=== PATIENT | female | born 1995 | race Caucasian/White ===

== ENCOUNTER 2020-08-11 20:11 | Emergency (ER) | payer BC ==
[2020-08-11] MEDS ORDERED: SODIUM CHLORIDE 0.9% (FLUSH) 10 ML SYG IV PRN (20:17)
--- NOTE | 2020-08-11 20:39 | RAD ---
EXAM: Chest,1 View CLINICAL INDICATION: Chest pounding COMPARISON: There is no previous study for comparison. FINDINGS: A single view of the chest was obtained. The heart size is normal. The pulmonary vascularity is unremarkable. The lungs are clear. There is no consolidation, infiltrate, pleural effusion, or pneumothorax. IMPRESSION: No evidence of active pulmonary disease. Electronically signed by: Froylan Blum MD 08/11/2020 8:38 PM [facility]
--- NOTE | 2020-08-11 21:49 | ED.PDOC ---
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 Patient's coworker noted her heart rate to be over 200 when she took her vital signs and was unable to get a good blood pressure. Patient was brought to the ED for further evaluation and treatment. Patient states she has never had symptoms like this in the past. Patient has intermittent headaches for which she takes Tylenol Motrin as needed. Palpitations were constant once they started. Patient denied any chest pain but she did has some generalized malaise and fatigue with near syncope and some mild shortness of breath. The symptoms were severe the improved shortly after arrival in the emergency department. Nothing seemed to make them better or worse. Timing/Duration: 1/2 hour Severity: severe Improving Factors: nothing Worsening Factors: nothing Associated Symptoms: malaise, shortness of breath, weakness Allergies/Adverse Reactions: Allergies NO KNOWN ALLERGY Allergy (Verified 08/11/20 20:17) Home Medications: Ambulatory Orders Propranolol HCl [Propranolol Hydrochloride] 5 mg PO BID #10 tab 08/11/20 Review of Systems - Review of Systems Constitutional: States: see HPI, malaise, weakness. Denies: chills, fever EENTM: States: no symptoms reported. Denies: eye pain, blurred vision, double vision Respiratory: States: see HPI, short of breath. Denies: cough, stridor, wheezing Cardiology: States: see HPI, palpitations, syncope - Near syncope. Denies: chest pain Gastrointestinal/Abdominal: States: no symptoms reported. Denies: abdominal pain, diarrhea, nausea, vomiting Genitourinary: States: no symptoms reported. Denies: dysuria, frequency Musculoskeletal: States: no symptoms reported. Denies: back pain, joint pain, neck pain Skin: States: no symptoms reported. Denies: change in color, rash Neurological: States: see HPI, weakness. Denies: tingling, tremors Endocrine: States: no symptoms reported. Denies: increased hunger, increased thirst, increased urine Hematologic/Lymphatic: States: no symptoms reported. Denies: blood clots, easy bleeding All other Systems: Reviewed and Negative Family Medical History - Family History Mother Family History: Unknown Physical Exam - Physical Exam General Appearance: Alert, Anxious, Obvious distress, Well Developed, Well Groomed, Well Hydrated, Well Nourished Eye Exam: bilateral normal Ears, Nose, Throat: hearing grossly normal, normal ENT inspection, normal pharynx Neck: non-tender, full range of motion, supple Respiratory: chest non-tender, lungs clear, normal breath sounds, no respiratory distress, no accessory muscle use Cardiovascular/Chest: normal peripheral pulses, no edema, no gallop, no JVD, no murmur, tachycardia Peripheral Pulses: radial,right: 2+, radial,left: 2+ Gastrointestinal/Abdominal: normal bowel sounds, non tender, soft Back Exam: normal inspection, no CVA tenderness, no vertebral tenderness, other - Patient with tattoo on her right shoulder Extremity: normal range of motion, non-tender, normal inspection Neurologic: button sewer II-XII nml as tested, no motor/sensory deficits, alert, normal mood/affect, oriented x 3 Skin Exam: normal color, warm/dry, other - Tattoo on right shoulder Lymphatic: no adenopathy Progress - Progress Progress: Differential diagnosis: Anxiety, PE, panic attack, medication reaction among others. 08/11/20 22:35 Patient symptoms have resolved. CT of the chest does not show PE. We will plan on discharge home with low-dose propranolol. Patient to follow-up with PCP in the next day or 2 for her palpitations, headaches and tachycardia. Patient knows that she will need a referral from her PCP for cardiology. I discussed the plan of care with the patient and she voices understanding and agreement. Perry Blanca M.D. #[id number] - Results/Orders Results/Orders: EKG performed on 11 August 2020 at 2014 hrs.: Sinus tachycardia at 112 bpm, normal axis deviation, no ST or T wave changes concerning for ischemia, otherwise normal EKG. No comparison EKG available at this time. EXAM: Chest,1 View CLINICAL INDICATION: Chest pounding COMPARISON: There is no previous study for comparison. FINDINGS: A single view of the chest was obtained. The heart size is normal. The pulmonary vascularity is unremarkable. The lungs are clear. There is no consolidation, infiltrate, pleural effusion, or pneumothorax. IMPRESSION: No evidence of active pulmonary disease. Electronically signed by: Se Blum MD 08/11/2020 8:38 PM 08/11/20 20:17 IV Care:Saline Lock per Protoc QSHIFT Telemetry .ONCE Sodium Chloride 0.9% (Flush) [Saline Flush Syringe] 10 ml IV PRN PRN EKG Assessment ONCE EKG Stat Pulse Ox Stat Pulse Oximetry Assessment DAILY 08/11/20 20:45 RESPIRATORY PANEL 2 Stat Laboratory Results - last 24 hr 08/11/20 08/11/20 20:30 20:30 WBC 11.3 H RBC 4.84 Hgb 14.1 Hct 41.7 MCV 86.1 MCH 29.1 MCHC 33.8 RDW 13.7 Plt Count 331 MPV 9.3 Absolute Neuts (auto) 5.90 Absolute Lymphs (auto) 4.30 H Absolute Monos (auto) 0.80 Absolute Eos (auto) 0.20 Absolute Basos (auto) 0.10 Neutrophils % 52.7 Lymphocytes % 38.1 Monocytes % 6.9 Eosinophils % 1.4 Basophils % 0.9 PT 10.5 INR 1.06 PTT (SP) 26.2 D-Dimer, Quantitative < 100.0 L Sodium 138 Potassium 3.3 L Chloride 106 Carbon Dioxide 23 Anion Gap 12.3 BUN 18 Creatinine 0.87 BUN/Creatinine Ratio 20.7 H Random Glucose 106 H Serum Osmolality 278.0 Calcium 9.5 Magnesium 2.2 Creatine Kinase 82 CK-MB (CK-2) 0.4 CK-MB (CK-2) % Not Reportable Troponin I < 0.02 B-Natriuretic Peptide < 15.0 EXAM DESCRIPTION: CTA Chest CLINICAL HISTORY: 24 years Female tachycardia and sob with associated chest pain COMPARISON: None TECHNIQUE: Images were obtained in axial, sagittal, and coronal planes. Intravenous contrast was administered. This exam was performed according to our departmental dose- optimization program which includes use of Automated Exposure Control, adjustment of the mA and/or kV according to patient size and/or use of iterative reconstruction technique. FINDINGS: No filling defects pulmonary arteries bilaterally. No aortic dissection or dilatation. No pericardial or pleural effusions bilaterally. No adenopathy. No pneumothorax. No lung parenchymal infiltrates or nodules seen. Flow artifact involving the spleen. No abnormality of the abdomen. No acute osseous abnormality. IMPRESSION: No evidence for pulmonary embolus. No aortic dissection or dilatation. No infiltrate seen. Electronically signed by: Samreen Ramirez MD 08/11/2020 9:50 PM [employer]END[employer] Vital Signs 08/11/20 08/11/20 20:17 21:12 Temperature 98.1 F Pulse Rate 126 H Pulse Rate [ 128 H 110 H left] Respiratory 18 14 Rate Blood Pressure 169/127 146/98 [Left Arm] O2 Sat by Pulse 100 98 Oximetry Departure - Departure Clinical Impression: Paroxysmal atrial tachycardia, Palpitations Headache Qualifiers: Headache type: unspecified Headache chronicity pattern: episodic headache Intractability: not intractable Qualified Code(s): R51.9 - Headache, unspecified Time of Disposition: 22:41 Disposition: Discharge to Home or Self Care Condition: Good Departure Forms: ED Discharge - Pt. Copy, Patient Portal Self Enrollment Instructions: DI for Chest Pain, Sinus Tachycardia (DC), Headache, Adult (DC), Palpitations (DC) Diet: resume usual diet Activity: increase activity as tolerated Referrals: [facility] [employer] [Active Staff] - 1-2 Weeks Prescriptions: Propranolol HCl [Propranolol Hydrochloride] 5 mg PO BID #10 tab Home Medications: Ambulatory Orders Propranolol HCl [Propranolol Hydrochloride] 5 mg PO BID #10 tab 08/11/20
--- NOTE | 2020-08-11 21:52 | CT ---
EXAM DESCRIPTION: CTA Chest CLINICAL HISTORY: 24 years Female tachycardia and sob with associated chest pain COMPARISON: None TECHNIQUE: Images were obtained in axial, sagittal, and coronal planes. Intravenous contrast was administered. This exam was performed according to our departmental dose-optimization program which includes use of Automated Exposure Control, adjustment of the mA and/or kV according to patient size and/or use of iterative reconstruction technique. FINDINGS: No filling defects pulmonary arteries bilaterally. No aortic dissection or dilatation. No pericardial or pleural effusions bilaterally. No adenopathy. No pneumothorax. No lung parenchymal infiltrates or nodules seen. Flow artifact involving the spleen. No abnormality of the abdomen. No acute osseous abnormality. IMPRESSION: No evidence for pulmonary embolus. No aortic dissection or dilatation. No infiltrate seen. Electronically signed by: Samreen Ramirez MD 08/11/2020 9:50 PM [employer] [employer] [facility]
[2020-08-11 21:58] VITALS: TEMP 98.1
[2020-08-11] MEDS ORDERED: METOPROLOL TARTRATE INJ 5 MG/5 ML VIAL IV ONE (22:05)
[2020-08-11 22:54] VITALS: BP 123/82; O2SAT 99
== END 2020-08-11 22:55 | disposition home or self-care (01) ==
LOC: ER 20:11
DX: I47.1 Supraventricular tachycardia (principal); R51.9 Headache, unspecified; R55 Syncope and collapse; Z20.828 Contact with and (suspected) exposure to other viral communicable diseases

== ENCOUNTER → 2020-08-17 | Outpatient (CLI) | payer BC | LOC: GMA CAST 17:13 | PROVIDERS: ATTEND Family Medicine Sports Medicine | DX: I47.9 Paroxysmal tachycardia, unspecified (principal); E87.6 Hypokalemia; Z83.42 Family history of familial hypercholesterolemia; R51.9 Headache, unspecified ==